=== PATIENT | female | born 1945 | race Caucasian/White ===

== ENCOUNTER 2017-03-06 17:14 | Inpatient (IN) | payer OTHER ==
[~2017-03-06] VITALS: Ht 152.4 cm; Wt 106.5 kg
[~2017-03-06 17:14] MED LIST: ADVAIR HFA120 INHALA IH; AMITRIPTYLINE100 MG PO; Advair HFA 115/21 IH; BENZONATATE200 MG PO; CELEBREX200 MG PO; CEPHALEXIN500 M2 PO; Ceftin PO; DELTASONE10 MG PO; DUONEB 2.5-0.5 M3 ML PEP; ELAVIL100 MG PO; Elavil PO; FUROSEMIDE20 MG PO; GABAPENTIN300 MG PO; HYDROCODONE-AP1 EAC8 PO; LEVOFLOXACIN750 MG PO; LIPITOR20 MG PO; Levaquin PO; MELOXICAM15 MG PO; MONTELUKAST SOD10 MG PO; MUCINEX600 MG PO; Mobic PO; PEPCID40 MG PO; PERCOCET 5/31 TABLET PO; PREDNISOLONE5 MG PO; PREDNISONE10 MG PO; Pravachol PO; SIMVASTATIN40 M1 PO; SINGULAIR10 MG PO; SPIRIVA RESPIMAT4 GM IH; SPIRIVA1 INHALATI IH; Singulair PO; TESSALON200 MG PO; THEO-DUR,THEOC200 MG PO; TRAMADOL HCL50 MG PO; Tylenol Regular Stre PO; VALIUM10 MG PO
[2017-03-06 18:26] LABS: HEMATOCRIT 45.7 % (36.0-46.0); MCH 27.7 PG (29.0-34.0); MCHC 30.4 G/DL (30.0-36.0); MEAN PLAT.VOLUME 10.6 uM^3 (9.5-12.4); PLATELET COUNT 221 K/uL (156-360); RBC DIS.WIDTH-CV 14.9 % (11.8-14.6); RBC DIS.WIDTH-SD 49.3 % (39-53); RED BLOOD COUNT 5.02 M/uL (3.80-5.20); WHITE BLOOD COUNT 8.1 K/uL (4.1-10.2)
[2017-03-06 18:34] LABS: BASE EXCESS 9.5 mEq/L (-3 to +3); BICARBONATE 35.8 mEq/L (22-26); CARBOXY HGB 1.9 % (0-5); METHEMOGLOBIN 0.6 % (0-1.5); PO2 45 mm Hg (80-100); pH 7.43 (7.35-7.45)
[2017-03-06 18:35] LABS: CHLORIDE 99 mEq/L (99-109); POTASSIUM 3.9 mEq/L (3.7-5.4); SODIUM 141 mEq/L (136-147)
[2017-03-06 18:35] LABS: COMMENTS - BLOOD GASES A+C+; DEVICE NC; O2 FLOW 6 L/MIN; PCO2 54 mm Hg (35-45); SITE RR
[2017-03-06 18:36] LABS: MAGNESIUM 1.5 mg/dL (1.3-2.7)
[2017-03-06 18:37] LABS: GLUCOSE 122 mg/dL (70-99)
[2017-03-06 18:38] LABS: ANION GAP 11 MEQ/L (2-14)
[2017-03-06 18:39] LABS: TOTAL BILIRUBIN 0.4 mg/dL (0.0-1.0)
[2017-03-06 18:41] LABS: ALKALINE PHOSPHATASE 71 IU/L (3-129); GFR ESTIMATE (CALCULATED) > 59 mL/min/
[2017-03-06 18:42] LABS: UREA NITROGEN (BUN) 10 mg/dL (9-23)
[2017-03-06 18:49] LABS: TROP-I INTERPRETATION NEGATIVE; TROPONIN-I 0.02 ng/mL (0.0-0.30)
[2017-03-06] MEDS ORDERED: PREDNISONE20 MG PO (20:21)
[2017-03-07 01:08] LABS: TROP-I INTERPRETATION NEGATIVE; TROPONIN-I < 0.01 ng/mL (0.0-0.30)
[2017-03-07 05:20] VITALS: BP 121/72
[2017-03-07 07:23] LABS: HEMATOCRIT 41.5 % (36.0-46.0); MCH 27.5 PG (29.0-34.0); MCHC 30.1 G/DL (30.0-36.0); MCV 91.4 FL (83-99); MEAN PLAT.VOLUME 10.4 uM^3 (9.5-12.4); PLATELET COUNT 224 K/uL (156-360); RBC DIS.WIDTH-CV 14.8 % (11.8-14.6); RBC DIS.WIDTH-SD 49.6 % (39-53); RED BLOOD COUNT 4.54 M/uL (3.80-5.20); WHITE BLOOD COUNT 7.4 K/uL (4.1-10.2)
[2017-03-07 07:30] VITALS: BP 138/70
[2017-03-07 07:43] LABS: TROP-I INTERPRETATION NEGATIVE; TROPONIN-I 0.02 ng/mL (0.0-0.30)
[2017-03-07 08:12] LABS: ANION GAP 9 MEQ/L (2-14); CHLORIDE 101 MEQ/L (99-109); GFR ESTIMATE (CALCULATED) > 59 mL/min/; GLUCOSE 131 mg/dL (70-99); POTASSIUM 4.1 MEQ/L (3.7-5.4); SAMPLE HEMOLYSIS CHECK 0; SAMPLE ICTERIC CHECK 0; SAMPLE LIPEMIA CHECK 0; SODIUM 143 MEQ/L (136-147); UREA NITROGEN (BUN) 12 mg/dL (9-23)
[2017-03-07 11:30] VITALS: BP 115/62
[2017-03-07 15:20] VITALS: BP 110/69
[2017-03-07 19:52] VITALS: BP 118/76
[2017-03-07 23:22] VITALS: BP 120/66
[2017-03-08 04:30] VITALS: BP 124/75
[2017-03-08 09:00] VITALS: BP 122/68
[2017-03-08 12:00] VITALS: BP 128/81
[2017-03-08 16:30] VITALS: BP 110/71
[2017-03-09 00:03] VITALS: BP 132/80
[2017-03-09 04:25] VITALS: BP 133/74
[2017-03-09 05:04] LABS: EOSINOPHIL (%) 0 % (0-5); HEMATOCRIT 41.8 % (36.0-46.0); IMMATURE GRANULOCYTE (%) 0.7 % (0.0-0.7); IMMATURE GRANULOCYTE COUNT 0.1 K/uL; INSTRUMENT ABS NEUTROPHIL CT 10.2 K/uL; LYMPHOCYTE COUNT 0.6 K/uL (1.0-2.8); MCH 27.7 PG (29.0-34.0); MCHC 29.7 G/DL (30.0-36.0); MCV 93.3 FL (83-99); MEAN PLAT.VOLUME 10.6 uM^3 (9.5-12.4); MONOCYTE (%) 3.9 % (3-12); MONOCYTE COUNT 0.4 K/uL (0-0.8); NEUTROPHIL (%) 90.4 % (45-76); NEUTROPHIL COUNT 10.2 K/uL (1.8-6.4); PLATELET COUNT 197 K/uL (156-360); RBC DIS.WIDTH-CV 14.7 % (11.8-14.6); RBC DIS.WIDTH-SD 50.2 % (39-53); RED BLOOD COUNT 4.48 M/uL (3.80-5.20); WHITE BLOOD COUNT 11.3 K/uL (4.1-10.2)
[2017-03-09 05:15] LABS: CHLORIDE 95 mEq/L (99-109); SODIUM 141 mEq/L (136-147)
[2017-03-09 05:17] LABS: GLUCOSE 128 mg/dL (70-99)
[2017-03-09 05:19] LABS: ANION GAP 8 MEQ/L (2-14)
[2017-03-09 05:21] LABS: GFR ESTIMATE (CALCULATED) 52 mL/min/
[2017-03-09 05:25] LABS: UREA NITROGEN (BUN) 28 mg/dL (9-23)
[2017-03-09 07:37] VITALS: BP 112/84
[2017-03-09 10:57] VITALS: BP 124/84
[2017-03-09 17:07] VITALS: BP 128/59
[2017-03-09 19:46] VITALS: BP 121/67
[2017-03-10] VITALS (7 sets, daily range): BP systolic 121–176; BP diastolic 63–89
[2017-03-11 04:06] VITALS: BP 137/76
[2017-03-11 09:00] VITALS: BP 122/73
[2017-03-11 12:00] VITALS: BP 132/82
[2017-03-11 16:00] VITALS: BP 124/74
[2017-03-11 19:21] VITALS: BP 132/69
[2017-03-11 23:19] VITALS: BP 115/76
[2017-03-12 04:31] VITALS: BP 134/76
[2017-03-12 06:00] LABS: EOSINOPHIL (%) 0.1 % (0-5); HEMATOCRIT 41.7 % (36.0-46.0); IMMATURE GRANULOCYTE (%) 0.9 % (0.0-0.7); IMMATURE GRANULOCYTE COUNT 0.1 K/uL; INSTRUMENT ABS NEUTROPHIL CT 9.3 K/uL; LYMPHOCYTE COUNT 1.2 K/uL (1.0-2.8); MCH 27.2 PG (29.0-34.0); MCHC 29.3 G/DL (30.0-36.0); MCV 93.1 FL (83-99); MEAN PLAT.VOLUME 10.8 uM^3 (9.5-12.4); MONOCYTE (%) 9.2 % (3-12); MONOCYTE COUNT 1.1 K/uL (0-0.8); NEUTROPHIL (%) 79.1 % (45-76); NEUTROPHIL COUNT 9.3 K/uL (1.8-6.4); PLATELET COUNT 183 K/uL (156-360); RBC DIS.WIDTH-CV 14.4 % (11.8-14.6); RBC DIS.WIDTH-SD 49.1 % (39-53); RED BLOOD COUNT 4.48 M/uL (3.80-5.20); WHITE BLOOD COUNT 11.8 K/uL (4.1-10.2)
[2017-03-12 06:46] LABS: ANION GAP 6 MEQ/L (2-14); CHLORIDE 93 MEQ/L (99-109); GFR ESTIMATE (CALCULATED) > 59 mL/min/; GLUCOSE 80 mg/dL (70-99); POTASSIUM 4.3 MEQ/L (3.7-5.4); SAMPLE HEMOLYSIS CHECK 0; SAMPLE ICTERIC CHECK 0; SAMPLE LIPEMIA CHECK 0; SODIUM 135 MEQ/L (136-147); UREA NITROGEN (BUN) 28 mg/dL (9-23)
[2017-03-12 09:51] VITALS: BP 117/60
[2017-03-12 12:32] VITALS: BP 132/76
[2017-03-12 14:20] LABS: Neutrophil Cytoplasmic Aby Negative (Negative)
[2017-03-12 16:48] VITALS: BP 138/60
[2017-03-12 19:20] VITALS: BP 132/68
[2017-03-12 23:01] VITALS: BP 122/65
[2017-03-13 04:01] VITALS: BP 125/63
[2017-03-13 08:00] VITALS: BP 127/59
[2017-03-13 11:46] VITALS: BP 119/63
[2017-03-13 15:04] VITALS: BP 138/69
[2017-03-13 20:00] VITALS: BP 132/68
[2017-03-13 23:55] VITALS: BP 119/71
[2017-03-14 04:00] VITALS: BP 121/66
[2017-03-14 04:46] LABS: HEMATOCRIT 43.8 % (36.0-46.0); MCH 27.5 PG (29.0-34.0); MCHC 29.5 G/DL (30.0-36.0); MCV 93.4 FL (83-99); MEAN PLAT.VOLUME 10.8 uM^3 (9.5-12.4); PLATELET COUNT 203 K/uL (156-360); RBC DIS.WIDTH-CV 14.5 % (11.8-14.6); RBC DIS.WIDTH-SD 49.1 % (39-53); RED BLOOD COUNT 4.69 M/uL (3.80-5.20); WHITE BLOOD COUNT 14.4 K/uL (4.1-10.2)
[2017-03-14 05:11] LABS: CHLORIDE 94 mEq/L (99-109); POTASSIUM 4.7 mEq/L (3.7-5.4); SODIUM 141 mEq/L (136-147)
[2017-03-14 05:13] LABS: GLUCOSE 98 mg/dL (70-99)
[2017-03-14 05:14] LABS: ANION GAP 9 MEQ/L (2-14)
[2017-03-14 05:17] LABS: GFR ESTIMATE (CALCULATED) 58 mL/min/
[2017-03-14 05:18] LABS: UREA NITROGEN (BUN) 32 mg/dL (9-23)
[2017-03-14 08:23] VITALS: BP 110/67
[2017-03-14 11:19] VITALS: BP 128/60
[2017-03-14 19:53] VITALS: BP 132/71
[2017-03-14 23:15] VITALS: BP 129/64
[2017-03-15 04:23] VITALS: BP 138/65
[2017-03-15 07:08] VITALS: BP 115/65
[2017-03-15 07:59] LABS: POINT-OF-CARE METER ID UU14314088; POINT-OF-CARE USER ID NUTSLF44
[2017-03-15 11:41] VITALS: BP 99/54
[2017-03-15 14:52] VITALS: BP 123/65
[2017-03-15 19:02] VITALS: BP 127/62
[2017-03-15 23:12] VITALS: BP 137/64
[2017-03-16 04:20] VITALS: BP 117/57
[2017-03-16 07:38] VITALS: BP 104/57
[2017-03-16] MEDS ORDERED: MUCINEX600 MG PO (09:26)
[2017-03-16] MEDS ORDERED: ADVAIR HFA120 INHALA IH (09:26)
[2017-03-16] MEDS ORDERED: FUROSEMIDE20 MG PO (09:27)
[2017-03-16 11:08] VITALS: BP 114/58
[2017-03-16] MEDS ORDERED: SYMBICORT60 INHALAT IH (11:51)
== END 2017-03-16 15:35 | disposition home health service (06) | DRG 189 ==
LOC: EME 17:14 → 4EAST 22:03 → EDOF 22:03 → ENRESERV 22:04 → 4EAST 23:45
PROVIDERS: Hospitalist; Internal Medicine; Internal Medicine Pulmonary Disease; Physician Assistant Medical
DX: J96.21 Acute and chronic respiratory failure with hypoxia (principal); J96.22 Acute and chronic respiratory failure with hypercapnia; J44.1 Chronic obstructive pulmonary disease with (acute) exacerbation; J44.0 Chronic obstructive pulmonary disease with (acute) lower respiratory infection; J20.9 Acute bronchitis, unspecified; E11.9 Type 2 diabetes mellitus without complications; E66.01 Morbid (severe) obesity due to excess calories; E78.5 Hyperlipidemia, unspecified; I27.29 Other secondary pulmonary hypertension; G47.33 Obstructive sleep apnea (adult) (pediatric); F32.9 Major depressive disorder, single episode, unspecified; F40.240 Claustrophobia; I25.10 Atherosclerotic heart disease of native coronary artery without angina pectoris; I11.0 Hypertensive heart disease with heart failure; I50.810 Right heart failure, unspecified; I27.81 Cor pulmonale (chronic); J84.112 Idiopathic pulmonary fibrosis; D64.9 Anemia, unspecified; K21.9 Gastro-esophageal reflux disease without esophagitis; Z66 Do not resuscitate; I25.2 Old myocardial infarction; Z23 Encounter for immunization; Z68.42 Body mass index [BMI] 45.0-49.9, adult; Z99.81 Dependence on supplemental oxygen; Z88.1 Allergy status to other antibiotic agents; Z88.2 Allergy status to sulfonamides; Z88.5 Allergy status to narcotic agent
CPT/HCPCS: 36600; 71010; 80048; 80053; 81003; 82803; 82948; 83605; 83735; 83880; 84484; 85025; 85027; 86021 90; 86038; 87040; 87070; 87205; 90686; 93005; 93306; 93970; 94640; 94640 76; 94760; 94799; 97530 GO; 99202; 99281; 99285; J0295; J0696; J1100; J1650; J1940; J1956; J2930; J3370; J3475; J7050; J7512; J7644

== ENCOUNTER 2017-06-09 15:29 | Inpatient (IN) | payer OTHER ==
[~2017-06-09] VITALS: Ht 152.4 cm; Wt 108.4 kg
[~2017-06-09 15:29] MED LIST changes: +PREDNISONE20 MG PO; +SYMBICORT60 INHALAT IH
[2017-06-09 16:06] LABS: HEMATOCRIT 45.9 % (36.0-46.0); HEMOGLOBIN 13.3 G/DL (11.9-15.5); MCH 26.8 PG (29.0-34.0); MCV 92.4 FL (83-99); NRBC (%) 0.1 /100 WBC (0-0); PLATELET COUNT 249 K/uL (156-360); RBC DIS.WIDTH-CV 15.4 % (11.8-14.6); RED BLOOD COUNT 4.97 M/uL (3.80-5.20); WHITE BLOOD COUNT 17.8 K/uL (4.1-10.2)
[2017-06-09 16:18] LABS: ALBUMIN 3.3 g/dL (3.2-4.8); CHLORIDE 97 mEq/L (99-109); POTASSIUM 5.3 mEq/L (3.7-5.4); SODIUM 135 mEq/L (136-147)
[2017-06-09 16:20] LABS: GLUCOSE 155 mg/dL (70-99)
[2017-06-09 16:21] LABS: TOTAL PROTEIN 7.9 g/dL (6.4-8.3)
[2017-06-09 16:22] LABS: TOTAL BILIRUBIN 0.7 mg/dL (0.0-1.0)
[2017-06-09 16:24] LABS: ALKALINE PHOSPHATASE 62 IU/L (3-129); CREATININE 1.4 mg/dL (0.6-1.3); GFR ESTIMATE (CALCULATED) 39 mL/min/
[2017-06-09 16:25] LABS: UREA NITROGEN (BUN) 25 mg/dL (9-23)
[2017-06-09 16:26] LABS: AST (GOT) 25 IU/L (2-34); DIRECT BILIRUBIN 0.4 mg/dL (0.0-0.3)
[2017-06-09 16:27] LABS: ALT (GPT) 11 IU/L (3-49)
[2017-06-09 16:30] LABS: TROP-I INTERPRETATION NEGATIVE; TROPONIN-I 0.06 ng/mL (0.0-0.30)
[2017-06-09 21:31] LABS: BASE EXCESS 4.6 mEq/L (-3 to +3); CARBOXY HGB 2.4 % (0-5); METHEMOGLOBIN 0.8 % (0-1.5); O2 FLOW 60 L/MIN; PCO2 74 mm Hg (35-45); PO2 87 mm Hg (80-100); SITE LR; pH 7.27 (7.35-7.45)
[2017-06-09 21:32] LABS: COMMENTS - BLOOD GASES A+C+; FI02 100 %; TOTAL RESP RATE 34 resp/min
[2017-06-09] MEDS ORDERED: DUONEB 2.5-0.5 M3 ML AEROSOL (22:11)
[2017-06-09] MEDS ORDERED: LASIX20 MG PO (22:13)
[2017-06-09] MEDS ORDERED: DELTASONE20 M1 PO (22:13)
[2017-06-09] MEDS ORDERED: MUCINEX600 MG PO (22:15)
[2017-06-09] MEDS ORDERED: ARTIFICIAL TEAR15 M1 BOTH EYES (22:17)
[2017-06-09 23:12] LABS: APPEARANCE CLEAR ((CLEAR)); BILIRUBIN NEGATIVE; BLOOD SMALL; COLOR STRAW ((YELLOW)); GLUCOSE (STRIP) NEGATIVE; KETONES NEGATIVE; LEUKOCYTES SMALL; NITRITE NEGATIVE; PROTEIN (STRIP) NEGATIVE; SPECIFIC GRAVITY 1.006 (1.000-1.030); UROBILINOGEN 0.2 MG/DL (0.2-1.0)
[2017-06-09 23:38] LABS: BACTERIA RARE /HPF; EPITHELIAL CELLS RARE /HPF; MUCUS TRACE /LPF; RED BLOOD CELLS 0-5 /HPF (0-5); UCUL ADDED? NO; WHITE BLOOD CELLS 0-5 /HPF (0-5)
[2017-06-10 00:26] LABS: BASE EXCESS 5.3 mEq/L (-3 to +3); BICARBONATE 33.7 mEq/L (22-26); CARBOXY HGB 2.2 % (0-5); COMMENTS - BLOOD GASES A+C+; METHEMOGLOBIN 1.2 % (0-1.5); PCO2 67 mm Hg (35-45); PO2 110 mm Hg (80-100); SITE RR; pH 7.31 (7.35-7.45)
[2017-06-10 00:27] LABS: DEVICE 980VENT; FI02 80 %; MODE SPONT; PEEP 5 CM/H20; PRES. SUPPORT 10 CM/H2O; TOTAL RESP RATE 35 resp/min
[2017-06-10 05:20] VITALS: BP 113/63
[2017-06-10 05:52] LABS: HEMATOCRIT 44.1 % (36.0-46.0); HEMOGLOBIN 12.6 G/DL (11.9-15.5); MCH 26.8 PG (29.0-34.0); MCHC 28.6 G/DL (30.0-36.0); MCV 93.6 FL (83-99); NRBC (%) 0.2 /100 WBC (0-0); PLATELET COUNT 194 K/uL (156-360); RBC DIS.WIDTH-CV 15.4 % (11.8-14.6); RBC DIS.WIDTH-SD 53.1 % (39-53); RED BLOOD COUNT 4.71 M/uL (3.80-5.20); WHITE BLOOD COUNT 9.8 K/uL (4.1-10.2)
[2017-06-10 06:21] LABS: CHLORIDE 96 MEQ/L (99-109); CREATININE 1.2 MG/DL (0.6-1.3); GFR ESTIMATE (CALCULATED) 47 mL/min/; GLUCOSE 122 mg/dL (70-99); POTASSIUM 4.5 MEQ/L (3.7-5.4); SODIUM 137 MEQ/L (136-147); UREA NITROGEN (BUN) 24 mg/dL (9-23)
[2017-06-10 08:32] VITALS: BP 116/68
[2017-06-10 11:43] VITALS: BP 134/79
[2017-06-10 14:19] LABS: BASE EXCESS 10.1 mEq/L (-3 to +3); BICARBONATE 41.2 mEq/L (22-26); CARBOXY HGB 2.3 % (0-5); METHEMOGLOBIN 1.4 % (0-1.5); PCO2 94 mm Hg (35-45); PO2 113 mm Hg (80-100)
[2017-06-10 14:22] LABS: pH 7.25 (7.35-7.45)
[2017-06-10 16:38] VITALS: BP 125/69
[2017-06-10 18:54] VITALS: BP 120/75
[2017-06-10 23:13] VITALS: BP 130/87
[2017-06-11 04:17] VITALS: BP 122/75
[2017-06-11 08:22] VITALS: BP 119/72
[2017-06-11 09:31] LABS: HEMATOCRIT 42.1 % (36.0-46.0); HEMOGLOBIN 11.7 G/DL (11.9-15.5); MCH 26.1 PG (29.0-34.0); MCHC 27.8 G/DL (30.0-36.0); NRBC (%) 0.3 /100 WBC (0-0); PLATELET COUNT 188 K/uL (156-360); RBC DIS.WIDTH-CV 14.9 % (11.8-14.6); RBC DIS.WIDTH-SD 52.3 % (39-53); RED BLOOD COUNT 4.48 M/uL (3.80-5.20); WHITE BLOOD COUNT 7.1 K/uL (4.1-10.2)
[2017-06-11 09:44] LABS: CHLORIDE 96 MEQ/L (99-109); GFR ESTIMATE (CALCULATED) 58 mL/min/; GLUCOSE 122 mg/dL (70-99); SODIUM 142 MEQ/L (136-147); UREA NITROGEN (BUN) 32 mg/dL (9-23)
[2017-06-11 11:45] VITALS: BP 112/69
[2017-06-11 12:24] LABS: BASE EXCESS 16.1 mEq/L (-3 to +3); BICARBONATE 45.9 mEq/L (22-26); CARBOXY HGB 2.2 % (0-5); COMMENTS - BLOOD GASES A+C+; DEVICE HHFLNC; FI02 85 %; METHEMOGLOBIN 1.3 % (0-1.5); O2 FLOW 50 L/MIN; PCO2 87 mm Hg (35-45); PO2 88 mm Hg (80-100); SITE RR; TOTAL RESP RATE 18 resp/min; pH 7.33 (7.35-7.45)
[2017-06-11 15:15] VITALS: BP 132/83
[2017-06-11 19:15] VITALS: BP 136/82
[2017-06-12 00:15] VITALS: BP 110/78
[2017-06-12 04:10] VITALS: BP 141/79
[2017-06-12 05:47] LABS: CHLORIDE 95 MEQ/L (99-109); CREATININE 0.8 MG/DL (0.6-1.3); GFR ESTIMATE (CALCULATED) > 59 mL/min/; GLUCOSE 124 mg/dL (70-99); MAGNESIUM 2.2 mg/dl (1.3-2.7); POTASSIUM 4.1 MEQ/L (3.7-5.4); SODIUM 143 MEQ/L (136-147); UREA NITROGEN (BUN) 29 mg/dL (9-23)
[2017-06-12 05:48] LABS: CARBON DIOXIDE (BICARBONATE) > 40.0 MEQ/L (20-31)
[2017-06-12 07:26] VITALS: BP 121/66
[2017-06-12 11:47] VITALS: BP 129/61
[2017-06-12 15:11] VITALS: BP 133/84
[2017-06-12 23:54] VITALS: BP 119/61
[2017-06-13 07:40] VITALS: BP 118/74
[2017-06-13 16:28] VITALS: BP 118/74
== END 2017-06-13 20:48 | DRG 190 ==
LOC: EME 15:29 → 5EAST 06-10 03:12 → ENRESERV 06-10 03:12 → 4EAST 06-10 03:12 → EDOF 06-10 03:12 → ENRESERV 06-10 03:59 → 4EAST 06-10 05:05 → ENRESERV 06-12 08:32 → 5EAST 06-12 18:08
PROVIDERS: Emergency Medicine; Family Medicine; Hospitalist; Internal Medicine; Physician Assistant Medical
DX: J44.1 Chronic obstructive pulmonary disease with (acute) exacerbation (principal); J96.21 Acute and chronic respiratory failure with hypoxia; J96.22 Acute and chronic respiratory failure with hypercapnia; I11.0 Hypertensive heart disease with heart failure; I50.33 Acute on chronic diastolic (congestive) heart failure; Z51.5 Encounter for palliative care; N17.9 Acute kidney failure, unspecified; E87.2 Acidosis; J20.9 Acute bronchitis, unspecified; E66.2 Morbid (severe) obesity with alveolar hypoventilation; F32.9 Major depressive disorder, single episode, unspecified; R79.1 Abnormal coagulation profile; G47.33 Obstructive sleep apnea (adult) (pediatric); F41.9 Anxiety disorder, unspecified; E78.5 Hyperlipidemia, unspecified; J84.10 Pulmonary fibrosis, unspecified; E66.01 Morbid (severe) obesity due to excess calories; I27.20 Pulmonary hypertension, unspecified; Z66 Do not resuscitate; Z53.29 Procedure and treatment not carried out because of patient's decision for other reasons; Z99.81 Dependence on supplemental oxygen; Z90.710 Acquired absence of both cervix and uterus; Z82.49 Family history of ischemic heart disease and other diseases of the circulatory system; Z68.41 Body mass index [BMI] 40.0-44.9, adult; I25.2 Old myocardial infarction; Z90.49 Acquired absence of other specified parts of digestive tract; M19.90 Unspecified osteoarthritis, unspecified site
CPT/HCPCS: 36600; 71045; 80048; 80076; 81003; 82803; 82948; 83605; 83735; 83880; 84484; 85027; 85379; 87040; 87070; 87205; 87502; 93005; 93306; 93970; 94002; 94010; 94640; 94640 76; 94760; 94799; 99202; 99281; 99285; J0295; J1100; J1644; J1940; J1956; J2060; J2270; J2930; J3475; J7050